=== PATIENT | female | born 1990 | race Two or more races ===

== ENCOUNTER 2019-09-22 16:17 | Emergency (ER) | payer SELFPAY ==
[~2019-09-22] VITALS: Ht 165.1 cm; Wt 73.0 kg
[2019-09-22] MEDS ORDERED: ONDANSETRON HCL 4MG/2ML INJ IV STA (17:14)
[2019-09-22] MEDS ORDERED: SODIUM CHLORIDE 0.9% 1,000 ML IV ONE (17:14)
[2019-09-22 17:37] LABS: BASOPHILS % 0.3 % (0.0-2.0); EOSINOPHILS % 2.4 % (0.0-5.0); HEMATOCRIT. 38.9 % (36.0-48.0); LYMPHOCYTES % 51.2 % (20.0-50.0); MEAN CORPUSCULAR HEMOGLOBIN 30.2 pg (28.0-32.0); MEAN CORPUSCULAR VOLUME 90.5 fL (81.0-99.0); MEAN PLATELET VOLUME 9.3 fl (7.4-10.4); MONOCYTES % 5.9 % (2.0-8.0); NEUTROPHILS % 40.2 % (40.0-76.0); PLATELET 243 x1000/uL (130-400); RED CELL DISTRIBUTION WIDTH 14.3 % (11.6-14.6)
[2019-09-22 17:42] LABS: CHLORIDE 106 mEq/L (98-107)
[2019-09-22 17:46] LABS: ETHANOL BLOOD 25 mg/dL
[2019-09-22 17:58] LABS: HCG SCREEN NEGATIVE
[2019-09-22 20:05] LABS: CLARITY URINE CLEAR (CLEAR); COLOR URINE YELLOW (YELLOW); KETONES URINE NEGATIVE (NEGATIVE); LEUKOCYTE ESTERASE URINE NEGATIVE (NEGATIVE); NITRITE URINE NEGATIVE (NEGATIVE); OCCULT BLOOD URINE NEGATIVE (NEGATIVE); PROTEIN URINE NEGATIVE (NEGATIVE); SPECIFIC GRAVITY URINE 1.019 (1.005-1.030)
[2019-09-22 20:21] LABS: *AMPHETAMINES SCREEN URINE NEGATIVE (NEGATIVE); *BARBITURATES SCREEN URINE NEGATIVE (NEGATIVE); *BENZODIAZEPINES SCREEN URINE NEGATIVE (NEGATIVE); *COCAINE SCREEN URINE NEGATIVE (NEGATIVE)
[2019-09-22 20:22] LABS: METHADONE URINE SCREEN NEGATIVE (NEGATIVE); OPIATES URINE SCREEN NEGATIVE (NEGATIVE); PHENCYCLIDINE URINE SCREEN NEGATIVE (NEGATIVE)
[2019-09-22 20:31] LABS: CANNABINOID URINE SCREEN PRESUMTIVE POSITIVE (NEGATIVE)
[2019-09-22] MEDS ORDERED: POTASSIUM CHLORIDE 20MEQ TABLET SR PO ONE (21:30)
[2019-09-22 22:56] VITALS: BP 127/71
== END 2019-09-22 22:40 | disposition home or self-care (01) ==
LOC: ER 16:17
DX: R11.2 Nausea with vomiting, unspecified (principal); E87.6 Hypokalemia
CPT/HCPCS: 36415; 80053; 80305; 80320; 81003; 83690; 83880; 84484; 84703; 85025; 93005; 96361; 96374; 99284; J2405; J7030; G0480